=== PATIENT | female | born 1965 | race Caucasian/White ===

== ENCOUNTER 2021-08-05 06:21 | Inpatient (IN) | payer MEDICARE, MEDICAID ==
[~2021-08-05] VITALS: Ht 167.6 cm; Wt 66.9 kg
[2021-08-05] MEDS ORDERED: NALOXONE HCL 1 MG/ML 2 ML SYRINGE IVP ONE (06:45)
[2021-08-05] MEDS ORDERED: LevETIRAcetam 1,000 MG in DEXTROSE 5%-WATER 100 ML IV ONE (06:45)
[2021-08-05 07:08] LABS: BASOPHILS % (AUTO) 0.3 % (0.0-2.0); EOSINOPHILS % (AUTO) 0 % (1.0-6.0); HEMATOCRIT 34.6 % (36-46); HEMOGLOBIN 11.6 g/dL (12.0-16.0); LYMPHOCYTES # (AUTO) 0.7 K/uL (1.0-4.8); MEAN CORPUSCULAR HEMOGLOBIN 27.4 pg (26.0-34.0); MEAN CORPUSCULAR HGB CONC 33.6 G/dL (31.0-37.0); MEAN CORPUSCULAR VOLUME 82 fL (80-100); MONOCYTES # (AUTO) 0.3 K/uL (0.1-1.0); MONOCYTES % (AUTO) 3.7 % (2.0-9.0); NEUTROPHILS # (AUTO) 6.9 K/uL (1.8-7.7); PLATELET COUNT (AUTO) 302 K/uL (150-450); RED BLOOD CELL COUNT(AUTO) 4.24 MIL/uL (4.00-5.20); RED CELL DISTRIBUTION WIDTH 14.9 % (11.5-14.5)
[2021-08-05 07:14] LABS: ANION GAP 9 mmol/L (8-16); CALCIUM, TOTAL 9.2 mg/dL (8.8-10.5); CARBON DIOXIDE 26 mmol/L (22-29); CHLORIDE 106 mmol/L (98-107); GLOMERULAR FILTR. RATE CALC 57 mL/min (>60); GLUCOSE,RANDOM 121 mg/dL (70-110); POTASSIUM 3.2 mmol/L (3.5-5.1); SODIUM SERUM 141 mmol/L (136-145); UREA NITROGEN, BLOOD 15 mg/dL (7-18)
[2021-08-05 07:25] LABS: ALANINE AMINOTRANSFERASE 20 U/L (12-78); ALBUMIN 3.7 g/dL (3.4-5.0); ALKALINE PHOSPHATASE 73 U/L (46-116); ASPARTATE AMINOTRANSFERASE 14 U/L (15-37); BILIRUBIN,TOTAL 0.3 mg/dL (0.1-1.0); TOTAL PROTEIN, SERUM 6.8 g/dL (6.4-8.2)
[2021-08-05 07:29] LABS: LACTIC ACID 2.7 mmol/L (0.4-2.0)
[2021-08-05 09:21] LABS: APPEARANCE,URINE CLEAR (CLEAR); BILIRUBIN,URINE NEGATIVE (NEGATIVE); GLUCOSE, URINE (UA) NEGATIVE (NEGATIVE); KETONES,URINE 15 mg/dL (NEGATIVE); LEUKOCYTE ESTERASE ,URINE SMALL (NEGATIVE); NITRATE,URINE POSITIVE (NEGATIVE); OCCULT BLOOD,URINE TRACE (NEGATIVE); PROTEIN,URINE NEGATIVE (NEGATIVE); UROBILINOGEN,URINE 0.2 mg/dL (<=1.0)
[2021-08-05 09:26] LABS: BACTERIA,URINE Many /HPF (None Seen)
[2021-08-05 09:27] LABS: AMPHET/METH SCREEN,URINE NEGATIVE (NEGATIVE); BARBITURATE SCREEN, URINE NEGATIVE (NEGATIVE); BENZODIAZEPINES SCREEN,URINE NEGATIVE (NEGATIVE); CANNABINOID SCREEN,URINE NEGATIVE (NEGATIVE); COCAINE SCREEN,URINE NEGATIVE (NEGATIVE); METHADONE SCREEN, URINE NEGATIVE (NEGATIVE); OPIATE SCREEN,URINE NEGATIVE (NEGATIVE)
[2021-08-05 09:29] LABS: PHENCYCLIDINE SCREEN,URINE NEGATIVE (NEGATIVE)
[2021-08-05] MEDS ORDERED: RisperiDONE 1 MG TABLET PO ONE (09:30)
[2021-08-05] MEDS ORDERED: 0.9% SODIUM CHLORIDE 10 ML SYRINGE IVP PRN (09:30)
[2021-08-05] MEDS ORDERED: ONDANSETRON HCL 4 MG/2 ML VIAL IVP PRN (09:30)
[2021-08-05] MEDS ORDERED: LevETIRAcetam 500 MG TABLET PO ONE (09:30)
[2021-08-05] MEDS ORDERED: ACETAMINOPHEN 325 MG TABLET PO PRN (09:30)
[2021-08-05] MEDS ORDERED: IOHEXOL 350 MG/ML 100 ML VIAL ONE (09:43)
[2021-08-05] MEDS ORDERED: CefTRIAXone 1 GM/DEXTROSE 50 ML IV ONE (09:45)
[2021-08-05] MEDS ORDERED: POTASSIUM CHLORIDE 10% 40 MEQ/30 ML LIQUID UDCUP PO ONE (09:45)
[2021-08-05] MEDS ORDERED: IOHEXOL 350 MG/ML 75 ML VIAL ONE (09:49)
[2021-08-05] MEDS ORDERED: INFLUENZA VIRUS VACCINE QVS 2021-22 (6MO+)/PF 60 MCG/0.5 ML SYRINGE IM. ONE (18:30)
[2021-08-05 18:51] VITALS: BP 109/74
[2021-08-05 19:55] VITALS: BP 105/74
[2021-08-05] MEDS ORDERED: LevETIRAcetam 500 MG TABLET PO SCH (21:00)
[2021-08-05] MEDS ORDERED: HALOPERIDOL LACTATE 5 MG/ML VIAL IM ONE (23:00)
[2021-08-05] MEDS ORDERED: LORazepam 2 MG/ML VIAL IVP ONE (23:00)
[2021-08-05] MEDS ORDERED: DiphenhydrAMINE HCL 50 MG/ML VIAL IVP ONE (23:00)
[2021-08-05 23:43] VITALS: BP 98/66
[2021-08-06] MEDS ORDERED: MORPHINE SULFATE 2 MG/ML SYRINGE IVP PRN (01:30)
[2021-08-06] MEDS ORDERED: ALBUTEROL SULFATE 2.5 MG/0.5 ML NEB SOLUTION NEB PRN (01:30)
[2021-08-06] MEDS ORDERED: HYDROCODONE/ACETAMINOPHEN 5-325 MG TABLET PO PRN (01:30)
[2021-08-06] MEDS ORDERED: BISACODYL 10 MG RECTAL RECTAL SUPPOSITORY PR PRN (01:30)
[2021-08-06] MEDS ORDERED: ACETAMINOPHEN 325 MG TABLET PO PRN (01:30)
[2021-08-06] MEDS ORDERED: MAGNESIUM HYDROXIDE SUSPENSION 30 ML UDCUP PO PRN (01:30)
[2021-08-06] MEDS ORDERED: ONDANSETRON HCL 4 MG/2 ML VIAL IVP PRN (01:30)
[2021-08-06] MEDS ORDERED: IPRATROPIUM BROMIDE 0.5 MG/2.5 ML NEB SOLUTION NEB PRN (01:30)
[2021-08-06 04:19] VITALS: BP 106/67
[2021-08-06 07:30] VITALS: BP 101/58
[2021-08-06] MEDS: LevETIRAcetam 500 MG TABLET PO SCH ×2 (08:34→21:26)
[2021-08-06] MEDS: HEPARIN SODIUM,PORCINE 5,000 UNITS/ML VIAL SQ SCH ×2 (08:35→16:46)
[2021-08-06] MEDS: DOCUSATE SODIUM 100 MG CAPSULE PO SCH ×2 (08:35→21:00)
[2021-08-06] MEDS: PANTOPRAZOLE SODIUM 40 MG/VIAL IVP SCH (08:35)
[2021-08-06] MEDS: CefTRIAXone 1 GM/DEXTROSE 50 ML IV SCH (12:01)
[2021-08-06 15:56] VITALS: BP 103/63
[2021-08-06 20:30] VITALS: BP 118/77
[2021-08-06] MEDS: ZOLPIDEM TARTRATE 5 MG TABLET PO PRN (21:26)
[2021-08-07 00:45] VITALS: BP 110/62
[2021-08-07 05:00] VITALS: BP 108/65
[2021-08-07] MEDS: HEPARIN SODIUM,PORCINE 5,000 UNITS/ML VIAL SQ SCH ×3 (08:00→15:14)
[2021-08-07] MEDS: DOCUSATE SODIUM 100 MG CAPSULE PO SCH ×2 (09:00→21:28)
[2021-08-07] MEDS: PANTOPRAZOLE SODIUM 40 MG/VIAL IVP SCH (09:00)
[2021-08-07] MEDS: LevETIRAcetam 500 MG TABLET PO SCH ×2 (09:23→21:28)
[2021-08-07] MEDS: CefTRIAXone 1 GM/DEXTROSE 50 ML IV SCH (09:23)
[2021-08-07 09:33] VITALS: BP 115/62
[2021-08-07 12:00] VITALS: BP 119/70
[2021-08-07 15:54] VITALS: BP 121/73
[2021-08-07] MEDS ORDERED: OLANZapine 5 MG RAPDIS TABLET PO PRN ×2 (19:00)
[2021-08-07 20:20] VITALS: BP 102/58
[2021-08-07] MEDS ORDERED: MELATONIN 5 MG TABLET PO SCH (21:00)
[2021-08-07] MEDS ORDERED: DIVALPROEX SODIUM 500 MG ER TABLET PO SCH (21:00)
[2021-08-07] MEDS ORDERED: OLANZapine 5 MG RAPDIS TABLET PO SCH (21:00)
[2021-08-07] MEDS: CEPHALEXIN MONOHYDRATE 500 MG CAPSULE PO SCH (21:00)
[2021-08-07] MEDS: ZOLPIDEM TARTRATE 5 MG TABLET PO PRN (21:42)
[2021-08-08 04:11] VITALS: BP 101/64
[2021-08-08] MEDS: HEPARIN SODIUM,PORCINE 5,000 UNITS/ML VIAL SQ SCH ×3 (08:00→16:24)
[2021-08-08 08:03] VITALS: BP 107/65
[2021-08-08] MEDS: LevETIRAcetam 500 MG TABLET PO SCH (08:21)
[2021-08-08] MEDS: DOCUSATE SODIUM 100 MG CAPSULE PO SCH (08:21)
[2021-08-08] MEDS: CEPHALEXIN MONOHYDRATE 500 MG CAPSULE PO SCH (08:21)
[2021-08-08] MEDS: PANTOPRAZOLE SODIUM 40 MG/VIAL IVP SCH (08:26)
[2021-08-08] MEDS ORDERED: OMEGA-3/DHA/EPA/FISH OIL 1,000 MG CAPSULE PO SCH (09:00)
[2021-08-08 12:59] VITALS: BP 98/59
[2021-08-08 16:20] VITALS: BP 103/60
[2021-08-08] MEDS ORDERED: DIVA-80 PO ×3 (16:44→18:35)
[2021-08-08] MEDS ORDERED: CEPH500C2 PO (16:44)
[2021-08-08] MEDS ORDERED: OMEG-108 PO ×3 (16:44→18:35)
[2021-08-08] MEDS ORDERED: OLAN5TAB94 PO ×3 (16:44→18:35)
[2021-08-08] MEDS ORDERED: LEVE500T8 PO (16:44)
[2021-08-08] MEDS ORDERED: CEPH500C3 PO ×2 (18:15→18:35)
[2021-08-08] MEDS ORDERED: LEVE500T20 PO ×2 (18:18→18:35)
[2021-08-09] MEDS ORDERED: PANTOPRAZOLE SODIUM 40 MG DR TABLET PO SCH (09:00)
== END 2021-08-08 18:45 | disposition home or self-care (01) | DRG 101 ==
LOC: EMS 06:23 → 5S 16:40 → 6S 08-07 16:13
PROVIDERS: ADMIT Hospitalist; ATTEND Hospitalist
DX: G40.409 Other generalized epilepsy and epileptic syndromes, not intractable, without status epilepticus (principal); N39.0 Urinary tract infection, site not specified; F20.0 Paranoid schizophrenia; E87.6 Hypokalemia; R91.1 Solitary pulmonary nodule; F99 Mental disorder, not otherwise specified; Z91.19 Patient's noncompliance with other medical treatment and regimen
CPT/HCPCS: 70450; 71045; 71270; 80053; 81001; 83605; 84484; 85025; 87081; 87086; 93005; 99291; C9113; G0378; G0480; G0482; J0696; J0712; J1200; J1630; J1644; J2060; J2310; J7060; Q9967; 36415-L1; 36415-TC

== ENCOUNTER 2022-01-15 09:56 | Inpatient (IN) | payer OTHER, MEDICAID ==
[~2022-01-15] VITALS: Ht 157.5 cm; Wt 78.9 kg
[~2022-01-15 09:56] MED LIST: CEPH-558 PO; CEPH500C2 PO; DIVA-80 PO; LEVE500T20 PO; LEVE500T8 PO; OLAN5TAB94 PO; OMEG-135 PO
[2022-01-15 10:41] LABS: BASOPHILS % (AUTO) 0.5 % (0.0-2.0); EOSINOPHILS % (AUTO) 0 % (1.0-6.0); HEMATOCRIT 38.1 % (36-46); HEMOGLOBIN 12.5 g/dL (12.0-16.0); LYMPHOCYTES # (AUTO) 1.3 K/uL (1.0-4.8); MEAN CORPUSCULAR HEMOGLOBIN 27.8 pg (26.0-34.0); MEAN CORPUSCULAR HGB CONC 32.9 G/dL (31.0-37.0); MEAN CORPUSCULAR VOLUME 85 fL (80-100); MONOCYTES # (AUTO) 0.3 K/uL (0.1-1.0); MONOCYTES % (AUTO) 6.2 % (2.0-9.0); NEUTROPHILS # (AUTO) 2.6 K/uL (1.8-7.7); NEUTROPHILS % (AUTO) 61.3 % (40.0-70.0); PLATELET COUNT (AUTO) 325 K/uL (150-450); RED CELL DISTRIBUTION WIDTH 14.1 % (11.5-14.5)
[2022-01-15 10:50] LABS: ANION GAP 11 mmol/L (8-16); CARBON DIOXIDE 23 mmol/L (22-29); CHLORIDE 109 mmol/L (98-107); GLOMERULAR FILTR. RATE CALC > 60 mL/min (>60); GLUCOSE,RANDOM 91 mg/dL (70-110); SODIUM SERUM 143 mmol/L (136-145); UREA NITROGEN, BLOOD 17 mg/dL (7-18)
[2022-01-15 10:55] LABS: ALANINE AMINOTRANSFERASE 25 U/L (12-78); ALBUMIN 3.9 g/dL (3.4-5.0); ALKALINE PHOSPHATASE 71 U/L (46-116); ASPARTATE AMINOTRANSFERASE 13 U/L (15-37); BILIRUBIN,TOTAL 0.4 mg/dL (0.1-1.0); TOTAL PROTEIN, SERUM 7.3 g/dL (6.4-8.2)
[2022-01-15 11:09] LABS: COVID AG,FIA SOURCE NASOPHARYNGEAL
[2022-01-15] MEDS ORDERED: HALOPERIDOL LACTATE 5 MG/ML VIAL IM ONE (11:30)
[2022-01-15] MEDS ORDERED: DiphenhydrAMINE HCL 25 MG CAPSULE PO ONE (11:30)
[2022-01-15] MEDS ORDERED: HALOPERIDOL 5 MG TABLET PO ONE (11:30)
[2022-01-15] MEDS ORDERED: DiphenhydrAMINE HCL 50 MG/ML VIAL IM ONE (11:30)
[2022-01-15 17:00] VITALS: BP 131/82
[2022-01-15 20:27] VITALS: BP 126/80
[2022-01-16] MEDS ORDERED: DOCUSATE SODIUM 100 MG CAPSULE PO PRN (06:45)
[2022-01-16] MEDS ORDERED: GuaiFENesin/D-METHORPHAN [SUGAR-FREE] 200-20MG/10 ML SYRUP UDCUP PO PRN (06:45)
[2022-01-16] MEDS ORDERED: CloNIDine HCL 0.1 MG TABLET PO PRN (06:45)
[2022-01-16] MEDS ORDERED: MAG HYDROX/AL HYDROX/SIMETH ES 30 ML SUSPENSION UDCUP PO PRN (06:45)
[2022-01-16] MEDS ORDERED: ACETAMINOPHEN 325 MG TABLET PO PRN (06:45)
[2022-01-16] MEDS ORDERED: LOPERAMIDE HCL 2 MG CAPSULE PO PRN (06:45)
[2022-01-16] MEDS ORDERED: MAGNESIUM HYDROXIDE SUSPENSION 30 ML UDCUP PO PRN (06:45)
[2022-01-16] MEDS ORDERED: ONDANSETRON HCL 4 MG TABLET PO PRN (06:45)
[2022-01-16] MEDS ORDERED: NICOTINE 14 MG/24 HOUR PATCH TD PRN (06:45)
[2022-01-16] MEDS ORDERED: PETROLATUM,WHITE 28 GM JELLY TP PRN (06:45)
[2022-01-16] MEDS ORDERED: ALBUTEROL SULFATE HFA 90 MCG/PUFF 8 GM INHALER IH PRN (06:45)
[2022-01-16 08:43] VITALS: BP 122/73
[2022-01-16] MEDS: LevETIRAcetam 500 MG TABLET PO SCH ×2 (10:07→16:30)
[2022-01-16] MEDS: OMEGA-3/DHA/EPA/FISH OIL 1,000 MG CAPSULE PO SCH (10:08)
[2022-01-16] MEDS ORDERED: HALOPERIDOL LACTATE 5 MG/ML VIAL IM ONE (13:00)
[2022-01-16] MEDS ORDERED: DiphenhydrAMINE HCL 50 MG/ML VIAL IM ONE (13:00)
[2022-01-16] MEDS ORDERED: LORazepam 2 MG/ML VIAL IM ONE (13:00)
[2022-01-16] MEDS: RisperiDONE 0.5 MG TABLET PO SCH ×2 (13:41→16:30)
[2022-01-16 20:42] VITALS: BP 123/72
[2022-01-17] MEDS: RisperiDONE 0.5 MG TABLET PO SCH ×2 (08:19→16:16)
[2022-01-17] MEDS: LevETIRAcetam 500 MG TABLET PO SCH ×2 (08:19→16:16)
[2022-01-17] MEDS: OMEGA-3/DHA/EPA/FISH OIL 1,000 MG CAPSULE PO SCH (08:19)
[2022-01-17] MEDS: LORazepam 2 MG TABLET PO PRN ×2 (08:19→16:17)
[2022-01-17 08:48] VITALS: BP 115/58
[2022-01-17 20:53] VITALS: BP 108/75
[2022-01-18 03:39] VITALS: BP 114/68
[2022-01-18 08:41] VITALS: BP 117/79
[2022-01-18] MEDS: LevETIRAcetam 500 MG TABLET PO SCH ×2 (09:08→17:17)
[2022-01-18] MEDS: OMEGA-3/DHA/EPA/FISH OIL 1,000 MG CAPSULE PO SCH (09:08)
[2022-01-18] MEDS: RisperiDONE 0.5 MG TABLET PO SCH ×2 (09:14→17:17)
[2022-01-18] MEDS: LORazepam 2 MG TABLET PO PRN ×2 (09:23→17:17)
[2022-01-18 21:03] VITALS: BP 126/77
[2022-01-18] MEDS: ZOLPIDEM TARTRATE 10 MG TABLET PO PRN (21:54)
[2022-01-19 08:32] VITALS: BP 122/69
[2022-01-19] MEDS: OMEGA-3/DHA/EPA/FISH OIL 1,000 MG CAPSULE PO SCH (08:42)
[2022-01-19] MEDS: RisperiDONE 0.5 MG TABLET PO SCH ×2 (08:43→16:34)
[2022-01-19] MEDS: LevETIRAcetam 500 MG TABLET PO SCH ×2 (08:43→16:34)
[2022-01-19] MEDS: HALOPERIDOL 5 MG TABLET PO PRN (19:47)
[2022-01-19] MEDS: LORazepam 2 MG TABLET PO PRN (19:47)
[2022-01-19 20:43] VITALS: BP 103/71
[2022-01-20 10:06] VITALS: BP 107/62
[2022-01-20] MEDS: RisperiDONE 0.5 MG TABLET PO SCH ×2 (10:14→17:18)
[2022-01-20] MEDS: LevETIRAcetam 500 MG TABLET PO SCH ×2 (10:14→17:18)
[2022-01-20] MEDS: OMEGA-3/DHA/EPA/FISH OIL 1,000 MG CAPSULE PO SCH (10:14)
[2022-01-20] MEDS: LORazepam 2 MG TABLET PO PRN ×2 (13:47→20:21)
[2022-01-20] MEDS: HALOPERIDOL 5 MG TABLET PO PRN ×2 (13:47→20:21)
[2022-01-20 20:10] VITALS: BP 113/71
[2022-01-21 08:31] VITALS: BP 133/72
[2022-01-21] MEDS: OMEGA-3/DHA/EPA/FISH OIL 1,000 MG CAPSULE PO SCH (08:50)
[2022-01-21] MEDS: LORazepam 2 MG TABLET PO PRN ×2 (08:51→11:31)
[2022-01-21] MEDS: LevETIRAcetam 500 MG TABLET PO SCH ×2 (08:51→16:34)
[2022-01-21] MEDS: RisperiDONE 0.5 MG TABLET PO SCH ×2 (08:51→16:34)
[2022-01-21 10:31] LABS: GLUCOMETER DEV NAME(LOC) POC.BV
[2022-01-21 20:32] VITALS: BP 112/87
[2022-01-21 21:25] VITALS: BP 123/82
[2022-01-21] MEDS: IBUPROFEN 400 MG TABLET PO PRN (21:25)
[2022-01-21] MEDS: ZOLPIDEM TARTRATE 10 MG TABLET PO PRN (21:25)
[2022-01-22 08:48] VITALS: BP 109/64
[2022-01-22] MEDS: OMEGA-3/DHA/EPA/FISH OIL 1,000 MG CAPSULE PO SCH (09:05)
[2022-01-22] MEDS: RisperiDONE 0.5 MG TABLET PO SCH ×2 (09:05→16:04)
[2022-01-22] MEDS: LevETIRAcetam 500 MG TABLET PO SCH ×2 (09:05→16:04)
[2022-01-22] MEDS: HALOPERIDOL 5 MG TABLET PO PRN ×2 (11:08→19:46)
[2022-01-22] MEDS: LORazepam 2 MG TABLET PO PRN (11:08)
[2022-01-22] MEDS: ZOLPIDEM TARTRATE 10 MG TABLET PO PRN (20:47)
[2022-01-22 20:57] VITALS: BP 108/68
[2022-01-22 22:44] VITALS: BP 113/80
[2022-01-22] MEDS: IBUPROFEN 400 MG TABLET PO PRN (22:44)
[2022-01-23 00:56] VITALS: BP 119/77
[2022-01-23] MEDS: HALOPERIDOL 5 MG TABLET PO PRN ×2 (00:57→18:27)
[2022-01-23] MEDS: LORazepam 2 MG TABLET PO PRN ×3 (00:57→20:40)
[2022-01-23] MEDS: OMEGA-3/DHA/EPA/FISH OIL 1,000 MG CAPSULE PO SCH (07:57)
[2022-01-23] MEDS: LevETIRAcetam 500 MG TABLET PO SCH ×2 (07:57→16:27)
[2022-01-23] MEDS: RisperiDONE 1 MG TABLET PO SCH ×2 (07:57→16:27)
[2022-01-23 08:11] VITALS: BP 100/62
[2022-01-23 20:05] VITALS: BP 117/87
[2022-01-24 08:08] VITALS: BP 109/66
[2022-01-24] MEDS: RisperiDONE 1 MG TABLET PO SCH (09:01)
[2022-01-24] MEDS: LevETIRAcetam 500 MG TABLET PO SCH ×2 (09:01→16:05)
[2022-01-24] MEDS: OMEGA-3/DHA/EPA/FISH OIL 1,000 MG CAPSULE PO SCH (09:01)
[2022-01-24] MEDS: LORazepam 2 MG TABLET PO PRN ×2 (12:39→20:11)
[2022-01-24] MEDS: RisperiDONE 2 MG TABLET PO SCH (16:05)
[2022-01-24] MEDS: HALOPERIDOL 5 MG TABLET PO PRN (20:11)
[2022-01-24 22:37] VITALS: BP 114/82
[2022-01-25] MEDS: RisperiDONE 2 MG TABLET PO SCH ×2 (08:17→16:45)
[2022-01-25] MEDS: OMEGA-3/DHA/EPA/FISH OIL 1,000 MG CAPSULE PO SCH (08:17)
[2022-01-25] MEDS: LevETIRAcetam 500 MG TABLET PO SCH ×2 (08:17→16:46)
[2022-01-25 08:30] VITALS: BP 114/79
[2022-01-25] MEDS: LORazepam 2 MG TABLET PO PRN (18:12)
[2022-01-25] MEDS: HALOPERIDOL 5 MG TABLET PO PRN (18:13)
[2022-01-25 20:12] VITALS: BP 119/75
[2022-01-25 21:27] VITALS: BP 103/65
[2022-01-26] MEDS: HALOPERIDOL 5 MG TABLET PO PRN ×2 (04:12→21:34)
[2022-01-26 04:22] VITALS: BP 136/2
[2022-01-26 08:00] VITALS: BP 98/70
[2022-01-26] MEDS: RisperiDONE 2 MG TABLET PO SCH ×2 (08:39→16:08)
[2022-01-26] MEDS: OMEGA-3/DHA/EPA/FISH OIL 1,000 MG CAPSULE PO SCH (08:39)
[2022-01-26] MEDS: LevETIRAcetam 500 MG TABLET PO SCH ×2 (08:39→16:08)
[2022-01-26 10:29] VITALS: BP 105/75
[2022-01-26] MEDS: LORazepam 2 MG TABLET PO PRN ×2 (10:29→20:21)
[2022-01-26 20:32] VITALS: BP 109/73
[2022-01-27 05:44] VITALS: BP 102/65
[2022-01-27] MEDS: OMEGA-3/DHA/EPA/FISH OIL 1,000 MG CAPSULE PO SCH (08:07)
[2022-01-27] MEDS: RisperiDONE 2 MG TABLET PO SCH ×2 (08:08→16:59)
[2022-01-27] MEDS: LevETIRAcetam 500 MG TABLET PO SCH ×2 (08:08→16:59)
[2022-01-27 09:47] VITALS: BP 112/60
[2022-01-27] MEDS: LORazepam 2 MG TABLET PO PRN ×3 (12:32→20:12)
[2022-01-27] MEDS: HALOPERIDOL 5 MG TABLET PO PRN (19:51)
[2022-01-27] MEDS: ZOLPIDEM TARTRATE 10 MG TABLET PO PRN (21:16)
[2022-01-27 21:45] VITALS: BP 113/73
[2022-01-28] MEDS: LevETIRAcetam 500 MG TABLET PO SCH ×2 (08:07→18:28)
[2022-01-28] MEDS: RisperiDONE 2 MG TABLET PO SCH ×2 (08:07→18:29)
[2022-01-28] MEDS: OMEGA-3/DHA/EPA/FISH OIL 1,000 MG CAPSULE PO SCH (08:07)
[2022-01-28 08:12] VITALS: BP 102/65
[2022-01-28 10:20] VITALS: BP 110/72
[2022-01-28] MEDS: LORazepam 2 MG TABLET PO PRN ×2 (10:29→21:19)
[2022-01-28 16:37] LABS: GLUCOMETER DEV NAME(LOC) POC.BV
[2022-01-28] MEDS: ZOLPIDEM TARTRATE 10 MG TABLET PO PRN (21:19)
[2022-01-28] MEDS: HALOPERIDOL 5 MG TABLET PO PRN (23:22)
[2022-01-29 00:16] VITALS: BP 123/86
[2022-01-29] MEDS: LORazepam 2 MG TABLET PO PRN ×3 (01:05→20:43)
[2022-01-29] MEDS: IBUPROFEN 400 MG TABLET PO PRN (02:04)
[2022-01-29 07:34] LABS: CHOL/HDL RATIO 3.2 (3.9-5.7); FREE T4 (FREE THYROXINE) 0.96 ng/dL (0.76-1.46); THYROID STIMULATING HORMONE 2.19 uIU/mL (0.36-3.74)
[2022-01-29 08:28] VITALS: BP 121/86
[2022-01-29] MEDS: OMEGA-3/DHA/EPA/FISH OIL 1,000 MG CAPSULE PO SCH (08:48)
[2022-01-29] MEDS: RisperiDONE 2 MG TABLET PO SCH ×2 (08:49→16:03)
[2022-01-29] MEDS: LevETIRAcetam 500 MG TABLET PO SCH ×2 (08:49→16:03)
[2022-01-29] MEDS: ZOLPIDEM TARTRATE 10 MG TABLET PO PRN (20:12)
[2022-01-30] MEDS: OMEGA-3/DHA/EPA/FISH OIL 1,000 MG CAPSULE PO SCH (08:29)
[2022-01-30] MEDS: LevETIRAcetam 500 MG TABLET PO SCH ×2 (08:29→16:17)
[2022-01-30] MEDS: RisperiDONE 2 MG TABLET PO SCH ×2 (08:30→16:17)
[2022-01-30 08:48] VITALS: BP 104/70
[2022-01-30] MEDS: IBUPROFEN 400 MG TABLET PO PRN (08:48)
[2022-01-30] MEDS: LORazepam 2 MG TABLET PO PRN (13:13)
[2022-01-30] MEDS ORDERED: PALIPERIDONE PALMITATE 156 MG/ML SYRINGE IM SCH ×2 (17:00)
[2022-01-30] MEDS: QUEtiapine FUMARATE 100 MG TABLET PO SCH (20:04)
[2022-01-30 20:24] VITALS: BP 108/69
[2022-01-30] MEDS: ZOLPIDEM TARTRATE 10 MG TABLET PO PRN (21:55)
[2022-01-31] MEDS: RisperiDONE 2 MG TABLET PO SCH ×2 (08:10→16:11)
[2022-01-31] MEDS: MULTIVITAMINS WITH MINERALS, THERAPEUTIC TABLET PO SCH (08:10)
[2022-01-31] MEDS: OMEGA-3/DHA/EPA/FISH OIL 1,000 MG CAPSULE PO SCH (08:10)
[2022-01-31] MEDS: LevETIRAcetam 500 MG TABLET PO SCH ×2 (08:10→16:11)
[2022-01-31] MEDS: LORazepam 2 MG TABLET PO PRN (13:48)
[2022-01-31] MEDS: HALOPERIDOL 5 MG TABLET PO PRN (16:12)
[2022-01-31] MEDS: QUEtiapine FUMARATE 100 MG TABLET PO SCH (20:38)
[2022-01-31] MEDS: ZOLPIDEM TARTRATE 10 MG TABLET PO PRN (20:39)
[2022-01-31 21:45] VITALS: BP 110/68
[2022-01-31] MEDS: IBUPROFEN 400 MG TABLET PO PRN (23:45)
[2022-02-01] MEDS: LORazepam 2 MG TABLET PO PRN ×3 (02:24→18:26)
[2022-02-01 02:26] VITALS: BP 107/76
[2022-02-01] MEDS: LevETIRAcetam 500 MG TABLET PO SCH ×2 (09:15→16:09)
[2022-02-01] MEDS: RisperiDONE 2 MG TABLET PO SCH ×2 (09:16→16:09)
[2022-02-01] MEDS: MULTIVITAMINS WITH MINERALS, THERAPEUTIC TABLET PO SCH (09:16)
[2022-02-01] MEDS: OMEGA-3/DHA/EPA/FISH OIL 1,000 MG CAPSULE PO SCH (09:17)
[2022-02-01 09:38] VITALS: BP 108/65
[2022-02-01 20:44] VITALS: BP 109/71
[2022-02-01] MEDS: QUEtiapine FUMARATE 100 MG TABLET PO SCH (20:47)
[2022-02-01] MEDS: ZOLPIDEM TARTRATE 10 MG TABLET PO PRN (21:24)
[2022-02-02] MEDS: OMEGA-3/DHA/EPA/FISH OIL 1,000 MG CAPSULE PO SCH (08:15)
[2022-02-02] MEDS: RisperiDONE 2 MG TABLET PO SCH (08:15)
[2022-02-02] MEDS: MULTIVITAMINS WITH MINERALS, THERAPEUTIC TABLET PO SCH (08:15)
[2022-02-02] MEDS: LevETIRAcetam 500 MG TABLET PO SCH (08:15)
[2022-02-02] MEDS: IBUPROFEN 400 MG TABLET PO PRN (08:15)
[2022-02-02 08:22] VITALS: BP 118/80
[2022-02-02 09:00] LABS: APPEARANCE,URINE CLEAR (CLEAR); BILIRUBIN,URINE NEGATIVE (NEGATIVE); GLUCOSE, URINE (UA) NEGATIVE (NEGATIVE); KETONES,URINE NEGATIVE (NEGATIVE); LEUKOCYTE ESTERASE ,URINE NEGATIVE (NEGATIVE); NITRATE,URINE NEGATIVE (NEGATIVE); OCCULT BLOOD,URINE NEGATIVE (NEGATIVE); PH,URINE 7.5 (5.0-8.0); PROTEIN,URINE NEGATIVE (NEGATIVE); UROBILINOGEN,URINE <=1.0 mg/dL (<=1.0)
[2022-02-02 09:06] LABS: BACTERIA,URINE None Seen /HPF (None Seen); RBC,URINE None Seen /HPF (0-2); WBC,URINE None Seen /HPF (0-5)
[2022-02-02] MEDS ORDERED: LEVE500T8 PO (09:30)
[2022-02-02] MEDS ORDERED: OMEG-135 PO (09:30)
[2022-02-02] MEDS ORDERED: PALI234D IM (09:30)
[2022-02-02] MEDS ORDERED: RISP2TAB86 PO (09:30)
== END 2022-02-02 11:00 | disposition home or self-care (01) | DRG 885 ==
LOC: EMS 09:58 → B2S 13:27 → B3A 01-25 20:30
PROVIDERS: ADMIT Psychiatry & Neurology Child & Adolescent Psychiatry; ATTEND Psychiatry & Neurology Child & Adolescent Psychiatry
DX: F20.0 Paranoid schizophrenia (principal); D72.819 Decreased white blood cell count, unspecified; Z20.822 Contact with and (suspected) exposure to COVID-19; E78.5 Hyperlipidemia, unspecified; F99 Mental disorder, not otherwise specified; G40.909 Epilepsy, unspecified, not intractable, without status epilepticus; Z91.14 Patient's other noncompliance with medication regimen
CPT/HCPCS: 80053; 80061; 81001; 83605; 84439; 84443; 85025; 99285; G0480; J1200; J1630; J2060

== ENCOUNTER 2022-02-09 21:37 | Emergency (ER) | payer MEDICARE, MEDICAID ==
[~2022-02-09] VITALS: Ht 170.2 cm; Wt 90.0 kg
[~2022-02-09 21:37] MED LIST changes: -CEPH-558 PO; -CEPH500C2 PO; -DIVA-80 PO; -LEVE500T20 PO; -OLAN5TAB94 PO; +PALI234D IM; +RISP2TAB86 PO
[2022-02-09 21:46] VITALS: BP 118/96
[2022-02-09] MEDS ORDERED: RisperiDONE 1 MG TABLET PO ONE (22:15)
[2022-02-09 23:06] LABS: BASOPHILS % (AUTO) 0.5 % (0.0-2.0); EOSINOPHILS % (AUTO) 0.1 % (1.0-6.0); HEMATOCRIT 37.4 % (36-46); HEMOGLOBIN 12.6 g/dL (12.0-16.0); LYMPHOCYTES # (AUTO) 1.3 K/uL (1.0-4.8); LYMPHOCYTES % (AUTO) 27.6 % (22.0-44.0); MEAN CORPUSCULAR HEMOGLOBIN 28.5 pg (26.0-34.0); MEAN CORPUSCULAR HGB CONC 33.7 G/dL (31.0-37.0); MEAN CORPUSCULAR VOLUME 85 fL (80-100); MONOCYTES # (AUTO) 0.4 K/uL (0.1-1.0); MONOCYTES % (AUTO) 8.1 % (2.0-9.0); NEUTROPHILS % (AUTO) 63.7 % (40.0-70.0); PLATELET COUNT (AUTO) 311 K/uL (150-450); RED BLOOD CELL COUNT(AUTO) 4.42 MIL/uL (4.00-5.20); RED CELL DISTRIBUTION WIDTH 14.1 % (11.5-14.5)
[2022-02-09 23:14] LABS: ANION GAP 10 mmol/L (8-16); CALCIUM, TOTAL 9.4 mg/dL (8.8-10.5); CARBON DIOXIDE 25 mmol/L (22-29); CHLORIDE 106 mmol/L (98-107); CREATININE 0.91 mg/dL (0.60-1.30); GLUCOSE,RANDOM 110 mg/dL (70-110); POTASSIUM 3.7 mmol/L (3.5-5.1); SODIUM SERUM 141 mmol/L (136-145); UREA NITROGEN, BLOOD 17 mg/dL (7-18)
[2022-02-09 23:15] LABS: GLOMERULAR FILTR. RATE CALC > 60 mL/min (>60)
[2022-02-09 23:28] LABS: ALANINE AMINOTRANSFERASE 30 U/L (12-78); ALBUMIN 3.8 g/dL (3.4-5.0); ALKALINE PHOSPHATASE 71 U/L (46-116); ASPARTATE AMINOTRANSFERASE 17 U/L (15-37); BILIRUBIN,TOTAL 0.2 mg/dL (0.1-1.0); HCG,QUANTITATIVE 2 mIU/mL (0-6); TOTAL PROTEIN, SERUM 7.1 g/dL (6.4-8.2)
== END 2022-02-10 02:37 | disposition left against medical advice (07) ==
LOC: EMS 21:37
DX: F20.0 Paranoid schizophrenia (principal)
CPT/HCPCS: 99284; 80053; 84702; 85025; 36415; G0480; 99283

== ENCOUNTER 2022-09-26 00:50 | Inpatient (IN) | payer MEDICARE, MEDICAID ==
[~2022-09-26] VITALS: Ht 157.5 cm; Wt 87.5 kg
[2022-09-26 04:26] VITALS: BP 116/71
[2022-09-26] MEDS: LORazepam 2 MG TABLET PO PRN ×2 (08:14→16:32)
[2022-09-26] MEDS: HALOPERIDOL 5 MG TABLET PO PRN (08:14)
[2022-09-26 08:21] VITALS: BP 128/89
[2022-09-26] MEDS ORDERED: DOCUSATE SODIUM 100 MG CAPSULE PO PRN (10:00)
[2022-09-26] MEDS ORDERED: CloNIDine HCL 0.1 MG TABLET PO PRN (10:00)
[2022-09-26] MEDS ORDERED: LOPERAMIDE HCL 2 MG CAPSULE PO PRN (10:00)
[2022-09-26] MEDS ORDERED: BENZOCAINE/MENTHOL LOZENGE PO PRN (10:00)
[2022-09-26] MEDS ORDERED: MAGNESIUM HYDROXIDE SUSPENSION 30 ML UDCUP PO PRN (10:00)
[2022-09-26] MEDS ORDERED: ALBUTEROL SULFATE HFA 90 MCG/PUFF 8 GM INHALER IH PRN (10:00)
[2022-09-26] MEDS ORDERED: ONDANSETRON HCL 4 MG TABLET PO PRN (10:00)
[2022-09-26] MEDS ORDERED: BACITRACIN 28 GM OINTMENT TP PRN (10:00)
[2022-09-26] MEDS ORDERED: PETROLATUM,WHITE 28 GM JELLY TP PRN (10:00)
[2022-09-26] MEDS ORDERED: MAG HYDROX/AL HYDROX/SIMETH ES 30 ML SUSPENSION UDCUP PO PRN (10:00)
[2022-09-26] MEDS ORDERED: OMEPRAZOLE 20 MG CAPSULE PO PRN (10:00)
[2022-09-26] MEDS: RisperiDONE 3 MG TABLET PO SCH ×2 (10:18→16:32)
[2022-09-26] MEDS: LevETIRAcetam 500 MG TABLET PO SCH (16:32)
[2022-09-26] MEDS ORDERED: LevETIRAcetam 500 MG TABLET PO SCH (17:00)
[2022-09-26 20:11] VITALS: BP 103/61
[2022-09-26] MEDS: BENZTROPINE MESYLATE 2 MG TABLET PO SCH (21:39)
[2022-09-27] MEDS: RisperiDONE 3 MG TABLET PO SCH ×2 (08:01→16:34)
[2022-09-27] MEDS: LORazepam 2 MG TABLET PO PRN ×2 (08:01→15:31)
[2022-09-27] MEDS: LevETIRAcetam 500 MG TABLET PO SCH ×2 (08:01→16:34)
[2022-09-27] MEDS: OMEGA-3/DHA/EPA/FISH OIL 1,000 MG CAPSULE PO SCH (08:01)
[2022-09-27] MEDS: HALOPERIDOL 5 MG TABLET PO PRN ×2 (08:01→15:31)
[2022-09-27] MEDS: ACETAMINOPHEN 325 MG TABLET PO PRN (15:31)
[2022-09-27 20:03] VITALS: BP 141/80
[2022-09-27] MEDS: BENZTROPINE MESYLATE 2 MG TABLET PO SCH (20:19)
[2022-09-27] MEDS: ZOLPIDEM TARTRATE 10 MG TABLET PO PRN (20:20)
[2022-09-28 08:21] VITALS: BP 129/72
[2022-09-28] MEDS: LevETIRAcetam 500 MG TABLET PO SCH ×2 (08:26→16:49)
[2022-09-28] MEDS: RisperiDONE 3 MG TABLET PO SCH ×2 (08:26→16:49)
[2022-09-28] MEDS: OMEGA-3/DHA/EPA/FISH OIL 1,000 MG CAPSULE PO SCH (08:26)
[2022-09-28] MEDS: LORazepam 2 MG TABLET PO PRN ×2 (08:27→16:50)
[2022-09-28] MEDS: HALOPERIDOL 5 MG TABLET PO PRN (09:46)
[2022-09-28 20:00] VITALS: BP 104/61
[2022-09-28] MEDS: BENZTROPINE MESYLATE 2 MG TABLET PO SCH (20:19)
[2022-09-29] MEDS: OMEGA-3/DHA/EPA/FISH OIL 1,000 MG CAPSULE PO SCH (08:00)
[2022-09-29] MEDS: LORazepam 2 MG TABLET PO PRN ×3 (08:01→20:05)
[2022-09-29] MEDS: RisperiDONE 3 MG TABLET PO SCH ×2 (08:01→16:04)
[2022-09-29] MEDS: LevETIRAcetam 500 MG TABLET PO SCH ×2 (08:01→16:04)
[2022-09-29 08:05] VITALS: BP 122/79
[2022-09-29] MEDS: HALOPERIDOL 5 MG TABLET PO PRN ×2 (08:43→13:17)
[2022-09-29] MEDS: IBUPROFEN 600 MG TABLET PO PRN (10:03)
[2022-09-29] MEDS: BENZTROPINE MESYLATE 2 MG TABLET PO SCH (20:05)
[2022-09-29] MEDS: ZOLPIDEM TARTRATE 10 MG TABLET PO PRN (20:05)
[2022-09-30] VITALS: BP 96/60
[2022-09-30] MEDS: RisperiDONE 3 MG TABLET PO SCH ×2 (08:19→16:00)
[2022-09-30] MEDS: OMEGA-3/DHA/EPA/FISH OIL 1,000 MG CAPSULE PO SCH (08:19)
[2022-09-30] MEDS: LevETIRAcetam 500 MG TABLET PO SCH ×2 (08:19→16:00)
[2022-09-30 08:33] VITALS: BP 111/53
[2022-09-30 08:34] VITALS: BP 111/53
[2022-09-30] MEDS: IBUPROFEN 600 MG TABLET PO PRN (09:58)
[2022-09-30] MEDS: LORazepam 2 MG TABLET PO PRN ×2 (10:07→14:18)
[2022-09-30] MEDS: ZOLPIDEM TARTRATE 10 MG TABLET PO PRN (20:02)
[2022-09-30] MEDS: BENZTROPINE MESYLATE 2 MG TABLET PO SCH (20:03)
[2022-09-30 21:35] VITALS: BP 117/63
[2022-09-30] MEDS: HALOPERIDOL 5 MG TABLET PO PRN (21:43)
[2022-10-01] MEDS: RisperiDONE 3 MG TABLET PO SCH ×2 (08:06→16:32)
[2022-10-01] MEDS: LevETIRAcetam 500 MG TABLET PO SCH ×2 (08:06→16:32)
[2022-10-01] MEDS: OMEGA-3/DHA/EPA/FISH OIL 1,000 MG CAPSULE PO SCH (08:06)
[2022-10-01 08:15] VITALS: BP 100/63
[2022-10-01] MEDS: HALOPERIDOL 5 MG TABLET PO PRN (09:48)
[2022-10-01] MEDS: LORazepam 2 MG TABLET PO PRN ×2 (09:48→19:12)
[2022-10-01] MEDS: BENZTROPINE MESYLATE 2 MG TABLET PO SCH (20:19)
[2022-10-01 20:23] VITALS: BP 116/74
[2022-10-02] MEDS: RisperiDONE 3 MG TABLET PO SCH ×2 (08:17→16:06)
[2022-10-02] MEDS: LORazepam 2 MG TABLET PO PRN (08:17)
[2022-10-02] MEDS: OMEGA-3/DHA/EPA/FISH OIL 1,000 MG CAPSULE PO SCH (08:17)
[2022-10-02] MEDS: LevETIRAcetam 500 MG TABLET PO SCH ×2 (08:17→16:06)
[2022-10-02] MEDS: HALOPERIDOL 5 MG TABLET PO PRN (10:45)
[2022-10-02 16:21] VITALS: BP 100/60
[2022-10-02] MEDS: BENZTROPINE MESYLATE 2 MG TABLET PO SCH (20:01)
[2022-10-03 01:12] VITALS: BP 110/65
[2022-10-03] MEDS: HALOPERIDOL 5 MG TABLET PO PRN ×2 (01:13→20:57)
[2022-10-03 08:09] VITALS: BP 101/64
[2022-10-03] MEDS: RisperiDONE 3 MG TABLET PO SCH ×2 (08:11→16:02)
[2022-10-03] MEDS: LevETIRAcetam 500 MG TABLET PO SCH ×2 (08:11→16:02)
[2022-10-03] MEDS: OMEGA-3/DHA/EPA/FISH OIL 1,000 MG CAPSULE PO SCH (08:12)
[2022-10-03] MEDS: LORazepam 2 MG TABLET PO PRN ×2 (10:18→20:57)
[2022-10-03 20:00] VITALS: BP 115/69
[2022-10-03] MEDS: BENZTROPINE MESYLATE 2 MG TABLET PO SCH (20:31)
[2022-10-03] MEDS: ZOLPIDEM TARTRATE 10 MG TABLET PO PRN (20:57)
[2022-10-04 07:02] VITALS: BP 100/67
[2022-10-04] MEDS: LORazepam 2 MG TABLET PO PRN ×2 (07:04→13:35)
[2022-10-04] MEDS: OMEGA-3/DHA/EPA/FISH OIL 1,000 MG CAPSULE PO SCH (08:44)
[2022-10-04] MEDS: LevETIRAcetam 500 MG TABLET PO SCH ×2 (08:45→16:06)
[2022-10-04] MEDS: RisperiDONE 3 MG TABLET PO SCH ×2 (08:45→16:06)
[2022-10-04] MEDS: ACETAMINOPHEN 325 MG TABLET PO PRN (12:52)
[2022-10-04] MEDS: HALOPERIDOL 5 MG TABLET PO PRN (16:06)
[2022-10-04 18:06] VITALS: BP 113/65
[2022-10-04] MEDS: IBUPROFEN 600 MG TABLET PO PRN (18:06)
[2022-10-04 20:03] VITALS: BP 101/61
[2022-10-04] MEDS: ZOLPIDEM TARTRATE 10 MG TABLET PO PRN (20:30)
[2022-10-04] MEDS: BENZTROPINE MESYLATE 2 MG TABLET PO SCH (20:30)
[2022-10-05 03:43] VITALS: BP 111/68
[2022-10-05] MEDS: LORazepam 2 MG TABLET PO PRN ×3 (03:47→13:26)
[2022-10-05] MEDS: HALOPERIDOL 5 MG TABLET PO PRN ×2 (08:12→13:26)
[2022-10-05] MEDS: LevETIRAcetam 500 MG TABLET PO SCH ×2 (08:13→16:39)
[2022-10-05] MEDS: RisperiDONE 3 MG TABLET PO SCH ×2 (08:13→16:39)
[2022-10-05] MEDS: OMEGA-3/DHA/EPA/FISH OIL 1,000 MG CAPSULE PO SCH (08:13)
[2022-10-05 08:15] VITALS: BP 100/60
[2022-10-05 13:31] LABS: GLUCOMETER DEV NAME(LOC) POC.BV
[2022-10-05] MEDS: BENZTROPINE MESYLATE 2 MG TABLET PO SCH (20:26)
[2022-10-05] MEDS: ZOLPIDEM TARTRATE 10 MG TABLET PO PRN (20:26)
[2022-10-05 22:30] VITALS: BP 117/65
[2022-10-06] MEDS: RisperiDONE 3 MG TABLET PO SCH ×2 (08:16→16:19)
[2022-10-06] MEDS: HALOPERIDOL 5 MG TABLET PO PRN (08:16)
[2022-10-06] MEDS: OMEGA-3/DHA/EPA/FISH OIL 1,000 MG CAPSULE PO SCH (08:16)
[2022-10-06] MEDS: LevETIRAcetam 500 MG TABLET PO SCH ×2 (08:16→16:19)
[2022-10-06 08:54] VITALS: BP 114/67
[2022-10-06] MEDS ORDERED: DIVA-112 PO (15:29)
[2022-10-06] MEDS ORDERED: RISP3TAB63 PO (15:29)
[2022-10-06] MEDS ORDERED: BENZ2TAB76 PO (15:29)
[2022-10-06] MEDS ORDERED: LEVE500T20 PO ×2 (15:40→15:41)
[2022-10-06] MEDS: BENZTROPINE MESYLATE 2 MG TABLET PO SCH (20:09)
[2022-10-06 21:16] VITALS: BP 118/72
[2022-10-07] MEDS: HALOPERIDOL 5 MG TABLET PO PRN (00:05)
[2022-10-07] MEDS: OMEGA-3/DHA/EPA/FISH OIL 1,000 MG CAPSULE PO SCH (08:13)
[2022-10-07] MEDS: RisperiDONE 3 MG TABLET PO SCH (08:13)
[2022-10-07] MEDS: LevETIRAcetam 500 MG TABLET PO SCH (08:13)
[2022-10-07 08:22] VITALS: BP 126/77
== END 2022-10-07 13:11 | disposition home or self-care (01) | DRG 885 ==
LOC: B3A 02:02
PROVIDERS: ADMIT Psychiatry & Neurology Psychiatry; ATTEND Psychiatry & Neurology Psychiatry
DX: F20.9 Schizophrenia, unspecified (principal); G40.909 Epilepsy, unspecified, not intractable, without status epilepticus; Z68.34 Body mass index [BMI] 34.0-34.9, adult; E66.9 Obesity, unspecified; K21.9 Gastro-esophageal reflux disease without esophagitis; G47.00 Insomnia, unspecified; K59.00 Constipation, unspecified; F41.9 Anxiety disorder, unspecified; Z20.822 Contact with and (suspected) exposure to COVID-19; F32.A Depression, unspecified; M54.9 Dorsalgia, unspecified
CPT/HCPCS: Z7610

== ENCOUNTER 2025-03-24 21:03 | Emergency (ER) | payer MEDICARE, MEDICAID ==
[~2025-03-24] VITALS: Ht 157.5 cm; Wt 118.2 kg
[~2025-03-24 21:03] MED LIST changes: +BENZ2TAB84 PO; +DIVA-112 PO; +LEVE-71 PO; -LEVE500T8 PO; -OMEG-135 PO; -PALI234D IM; -RISP2TAB86 PO; +RISP3TAB35 PO
[2025-03-24 21:14] VITALS: BP 144/70; PULSE 120; RESP 12; TEMP 99.5; O2SAT 94
== END 2025-03-25 01:00 | disposition left against medical advice (07) ==
LOC: EMS 21:10
DX: R11.2 Nausea with vomiting, unspecified (principal); R19.7 Diarrhea, unspecified; Z53.21 Procedure and treatment not carried out due to patient leaving prior to being seen by health care provider
CPT/HCPCS: 99281; Z7502